=== PATIENT | female | born 1995 | race Caucasian/White ===

== ENCOUNTER 2018-05-18 22:14 | Emergency (ER) | payer OTHER ==
[2018-05-18] MEDS ORDERED: OXYCODONE/APAP 5/325 TAB PO ONE (22:42)
--- NOTE | 2018-05-18 22:42 | EDPHY ---
H & P Stated Complaint: right thumb injury Time Seen by Provider: 05/18/18 22:42 HPI/ROS: HPI: This is a 22-year-old female who presents with Chief Complaint: Right thumb injury Location: Right thumb Quality: Injury Duration: 3 hr prior to arrival Signs and Symptoms: No bleeding, no radiation, no numbness, no weakness, no tingling, no incontinence, no decreased range of motion, no swelling, + pain, no fever Timing: Acute Severity: Moderate Context: Patient is right-hand dominant, presents with complaints of accidentally falling while rock climbing several feet and hyperextending her right thumb. She reports that she has been icing it for the last several hours but the pain continues. She denies decreased range of motion, radiation, weakness. Denies LOC/head injury/neck pain/dizziness/nausea/vomiting/amnesia. Modifying Factors: Ice pack applied. Comment: ROS: A comprehensive 10 system review of systems is otherwise negative aside from elements mentioned in the history of present illness. MEDICAL/SURGICAL/SOCIAL HISTORY: Medical history: Generally healthy. Does not take any regular medications. LMP 1 week ago. Surgical history: Denies Social history: Student at [employer]. Never smoked. CONSTITUTIONAL: Well-developed, well-nourished, young adult white female, awake and alert, no obvious distress HEENT: Atraumatic and normocephalic. NECK: supple, no midline tenderness Cardiovascular: Normal S1/S2, regular rate, regular rhythm, without murmur rub or gallop. PULMONARY/CHEST: Symmetrical and nontender. Clear to auscultation bilaterally. Good air movement. No accessory muscle usage. ABDOMEN: Soft, nondistended, nontender. EXTREMITIES: 2/2 pulses, strength 5/5, right thumb shows full range of motion at the DIP and MCP joints. right WRIST: Extension to 70, flexion to 80, radial deviation to 20 degree, ulnar deviation to 30, moderate scaphoid tenderness, no tenderness over ulnar styloid, no tenderness over radial styloid. DIP/PIP/MCP flexion/extension intact with good light touch sensation. no deformities, no clubbing, no cyanosis or edema. NEUROLOGICAL: no focal neuro deficits. GCS 15. Light touch sensation intact. SKIN: Warm and dry, no erythema. no rash. Good capillary refill. Source: Patient Exam Limitations: No limitations - Personal History LMP (Females 10-55): 1-7 Days Ago Current Tetanus Diphtheria and Acellular Pertussis (TDAP): Yes - Medical/Surgical History Hx Asthma: No Hx Chronic Respiratory Disease: No Hx Diabetes: No Hx Cardiac Disease: No Hx Renal Disease: No Hx Cirrhosis: No Hx Alcoholism: No Hx HIV/AIDS: No Hx Splenectomy or Spleen Trauma: No Other PMH: denies - Social History Smoking Status: Never smoked Constitutional: Initial Vital Signs Temperature (C) 36.9 C 05/18/18 22:19 Heart Rate 88 05/18/18 22:19 Respiratory Rate 20 05/18/18 22:19 Blood Pressure 113/87 H 05/18/18 22:19 O2 Sat (%) 97 05/18/18 22:19 O2 Delivery Mode Room Air Allergies/Adverse Reactions: contrast dye Allergy (Uncoded 05/18/18 22:18) Home Medications: Medication Instructions Recorded NK [No Known Home Meds] 05/18/18 Medical Decision Making Procedures: Procedure: Splint placement. A right Velcro thumb spica splint was applied. After application of the splint I returned and re-examined the patient. The splint was adequately immobilizing the joint and distal to the splint the patient's circulation and sensation was intact. ED Course/Re-evaluation: Vital signs reviewed and stable upon arrival. Percocet x1 given Right hand x-ray ordered and my read via PACs shows no fracture, no dislocation. Placed in Velcro thumb spica splint, ortho/hand follow up prn No signs of neurovascular compromise/tenting of skin/compartment syndrome/ extremities and joints examined above and below area of concern and are neurovascularly intact. This patient was seen under the supervision of my secondary supervising physician. I evaluated care for this patient attending. Discussed this patient with Dr. Melton. Differential Diagnosis: Differential diagnosis includes but is not limited to scares thumb, tendon rupture, nerve injury, foreign body, sprain, scaphoid fracture, radial fracture , ulnar fracture. - Data Points Medications Given: Discontinued Medications Oxycodone/Acetaminophen (Percocet 5/325) 1 tab PO EDNOW ONE Stop: 05/18/18 22:43 Last Admin: 05/18/18 22:49 Dose: 1 tab Departure - Departure Disposition: Home, Routine, Self-Care Clinical Impression: Sprain of right thumb Qualifiers: Encounter type: initial encounter Sprain of finger site: metacarpophalangeal joint Qualified Code(s): S63.641A - Sprain of metacarpophalangeal joint of right thumb, initial encounter Condition: Good Instructions: Skier's Thumb (ED), Finger Sprain (ED) Additional Instructions: Wear the splint while out of bed until pain free or seen by orthopedic/hand. Take Tylenol 650 mg every 4 hours and/or Ibuprofen 600 mg every 8 hours with food as needed for pain. Apply ice for 30 minutes at a time; 2-3 times per day for the next 1-2 days. Follow up with Orthopedics in 7-10 days symptoms persist at which time they will evaluate and recommend with you if conservative management versus further imaging is indicated. The x-rays obtained in the emergency department today demonstrate no evidence of an obvious fracture. Sometimes fractures are not obvious on the initial set of x-rays performed in the ED. For this reason, you should have repeat x-rays performed in 7-10 days if you are having any pain exclude the possibility of an occult fracture. Referrals: Antonio Gooden MD [Medical Doctor] - As per Instructions
[2018-05-18 23:02] VITALS: BP 118/72
== END 2018-05-18 23:02 | disposition home or self-care (01) ==
DX: S63.641A Sprain of metacarpophalangeal joint of right thumb, initial encounter (principal); Y93.31 Activity, mountain climbing, rock climbing and wall climbing; W17.81XA Fall down embankment (hill), initial encounter; Y92.828 Other wilderness area as the place of occurrence of the external cause